=== PATIENT | male | born 1945 | race Caucasian/White ===

== ENCOUNTER 2017-07-02 15:13 | Emergency (ER) | payer OTHER ==
[2017-07-02 15:26] VITALS: BP 169/98; PULSE 67; RESP 16; TEMP 98.1; O2SAT 95
--- NOTE | 2017-07-02 15:32 | EDPHY ---
H & P Stated Complaint: Abcess/cyst upper middle back x 1 week. Time Seen by Provider: 07/02/17 15:21 HPI/ROS: CHIEF COMPLAINT: Burton HISTORY OF PRESENT ILLNESS: The patient is a 72-year-old man with a history of MRSA abscesses. 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 He has not yet done this. He is here on vacation and noticed that it was becoming infected again. He has some slight drainage at home. No fevers. He has had MRSA before and was recently on Bactrim for infection to abrasions on his legs. This was several weeks ago. REVIEW OF SYSTEMS: Constitutional: denies: chills, fever, recent illness, recent injury EENTM: denies: blurred vision, double vision, nose congestion Respiratory: denies: cough, shortness of breath Cardiac: denies: chest pain, irregular heart rate, lightheadedness, palpitations Gastrointestinal/Abdominal: denies: abdominal pain, diarrhea, nausea, vomiting, blood streaked stools Genitourinary: denies: dysuria, frequency, hematuria, pain Musculoskeletal: denies: joint pain, muscle pain Skin: See HPI Neurological: denies: headache, numbness, paresthesia, tingling, dizziness, weakness Hematologic/Lymphatic: denies: blood clots, easy bleeding, easy bruising Immunologic/allergic: denies: HIV/AIDS, transplant EXAM: GENERAL: Well-appearing, well-nourished and in no acute distress. HEAD: Atraumatic, normocephalic. EYES: Pupils equal round and reactive to light, extraocular movements intact, sclera anicteric, conjunctiva are normal. ENT: TMs normal, nares patent, oropharynx clear without exudates. Moist mucous membranes. NECK: Normal range of motion, supple without lymphadenopathy or JVD. LUNGS: Breath sounds clear to auscultation bilaterally and equal. No wheezes rales or rhonchi. HEART: Regular rate and rhythm without murmurs, rubs or gallops. ABDOMEN: Soft, nontender, normoactive bowel sounds. No guarding, no rebound. No masses appreciated. BACK: No CVA tenderness, no spinal tenderness, step-offs or deformities EXTREMITIES: Normal range of motion, no pitting or edema. No clubbing or cyanosis. NEUROLOGICAL: Cranial nerves II through XII grossly intact. Normal speech, normal gait. 5/5 strength, normal movement in all extremities, normal sensation PSYCH: Normal mood, normal affect. SKIN: 2 cm fluctuant abscess to mid thoracic spinal region. Source: Patient Exam Limitations: No limitations - Personal History Current Tetanus Diphtheria and Acellular Pertussis (TDAP): Yes Tetanus Vaccine Date: within 10 years - Medical/Surgical History Hx Asthma: No Hx Chronic Respiratory Disease: No Hx Diabetes: No Hx Cardiac Disease: No Hx Renal Disease: No Hx Cirrhosis: No Hx Alcoholism: No Hx HIV/AIDS: No Hx Splenectomy or Spleen Trauma: No Other PMH: HTN, enlarged prostate, hyperlipidemia - Social History Smoking Status: Former smoker Alcohol Use: Sober Drug Use: None Constitutional: Initial Vital Signs Temperature (C) 36.7 C 07/02/17 15:14 Heart Rate 67 07/02/17 15:14 Respiratory Rate 16 07/02/17 15:14 Blood Pressure 169/98 H 07/02/17 15:14 O2 Sat (%) 95 07/02/17 15:14 O2 Delivery Mode Room Air Allergies/Adverse Reactions: tetracycline Allergy (Unknown, Verified 07/02/17 15:23) Rash Home Medications: Medication Instructions Recorded Finasteride 07/02/17 Sulfamethox/Tmp 800/160 mg 1 tab PO BID #14 tab 07/02/17 [Bactrim Ds] Tamsulosin HCl 07/02/17 Verapamil 07/02/17 Zocor 07/02/17 Medical Decision Making Procedures: Procedure: Abscess drainage. The patient's abscess was located on the back. I obtained verbal consent from the patient to drain the abscess who was informed about the possibility of bleeding and pain. The abscess was incised with 11 blade and moderate amount of purulent drainage was expressed. I irrigated the wound and placed some packing. The patient tolerated the procedure well. The procedure was performed by myself. ED Course/Re-evaluation: Patient tolerated the procedure well. I will restart him on Bactrim. Culture sent. We discussed contagiousness. Differential Diagnosis: Differential diagnosis: Abscess, cellulitis, cyst, sepsis, spinal infection - Data Points Microbiology Results: MICROBIOLOGY 07/02/17 15:35 Back - Anaerobic Tube/Swab Gram Stain - Final Departure - Departure Disposition: Home, Routine, Self-Care Clinical Impression: Abscess Condition: Fair Instructions: Abscess (ED) Referrals: Doctor Not,On Staff, [Primary Care Provider] - As per Instructions Tanika Moya MD [[facility] [place] Primary Care Provider] - As per Instructions Prescriptions: Sulfamethox/Tmp 800/160 mg [Bactrim Ds] 1 tab PO BID #14 tab
== END 2017-07-02 15:55 | disposition home or self-care (01) ==
LOC: CED 15:13
PROC: 0H96XZZ Drainage of Back Skin, External Approach (ICD-10-PCS; principal; 2017-07-02)
DX: L02.212 Cutaneous abscess of back [any part, except buttock and flank] (principal); I10 Essential (primary) hypertension; Z87.891 Personal history of nicotine dependence